=== PATIENT | female | born 1965 | race Caucasian/White ===

== ENCOUNTER 2016-09-04 22:51 | Emergency (ER) | payer OTHER ==
[~2016-09-04] VITALS: Ht 160 cm; Wt 109.0 kg
[~2016-09-04 22:51] MED LIST: BACT800T5 PO; BENA25TA8 PO; LEVO100T4 PO; LISI-587 PO; LORA5SOL3 PO; RANI150 PO; ZOCO40TA PO
[2016-09-04 22:58] VITALS: BP 149/98; PULSE 117; RESP 20; TEMP 99.4; O2SAT 95
[2016-09-04] MEDS ORDERED: SODIUM CHLOR 0.9% 1000 ML INJ 1,000 ML IV SCH (23:12)
[2016-09-04] MEDS ORDERED: ZOCO40TA PO (23:14)
[2016-09-04] MEDS ORDERED: LEVO100T5 PO (23:14)
[2016-09-04] MEDS ORDERED: ZANT150T2 PO (23:14)
[2016-09-04] MEDS ORDERED: KETOROLAC TROMETHAMINE 30 MG/ML (IVP) VIAL IVP ONE (23:15)
[2016-09-04] MEDS ORDERED: ONDANSETRON HCL 4 MG/2 ML VIAL IVP ONE (23:15)
[2016-09-04] MEDS ORDERED: SODIUM CHLORIDE 0.9% FLUSH 5 ML FLUSH IVF PRN (23:15)
[2016-09-04 23:24] VITALS: BP 98/64; PULSE 88; RESP 18; O2SAT 94
[2016-09-04 23:30] LABS: AUTOMATED NEUTROPHIL # 9.4 TH/MM3 (1.8-7.7); BASOPHIL # 0.7 TH/MM3 (0-0.2); BASOPHIL % 4.5 % (0.0-2.0); EOSINOPHIL # 0.4 TH/MM3 (0-0.4); EOSINOPHIL % 2.6 % (0.0-4.0); HEMATOCRIT 45.4 % (35.0-46.0); HEMO FLAGS DIFF FINAL; LYMPH % 24.3 % (9.0-44.0); LYMPHOCYTE # 3.6 TH/MM3 (1.0-4.8); MEAN CELL VOLUME 87.3 FL (80.0-100.0); MEAN CORPUSCULAR HEMOGLOBIN 29.9 PG (27.0-34.0); MEAN CORPUSCULAR HGB CONC 34.2 % (32.0-36.0); MONO % 4.8 % (0.0-8.0); NEUT % 63.8 % (16.0-70.0); PLATELET COUNT 537 TH/MM3 (150-450); RED CELL DISTRIBUTION WIDTH 14.3 % (11.6-17.2); WHITE BLOOD COUNT 14.8 TH/MM3 (4.0-11.0)
[2016-09-04 23:38] LABS: CHLORIDE 101 MEQ/L (98-107); POTASSIUM 3.5 MEQ/L (3.5-5.1); SODIUM (NA) 137 MEQ/L (136-145)
[2016-09-04 23:42] LABS: ANION GAP 10 MEQ/L (5-15); APTT (PATIENT) 31.5 SEC (24.3-30.1); BICARBONATE 25.6 MEQ/L (21.0-32.0); BLOOD UREA NITROGEN 27 MG/DL (7-18); INTERNATIONAL NORMALIZED RATIO 0.9 RATIO; PROTHROMBIN TIME - PATIENT 10.4 SEC (9.8-11.6)
[2016-09-04 23:45] LABS: ALT (GPT) 73 U/L (10-53); AST (GOT) 21 U/L (15-37); GLOMERULAR FILTRATION RATE 43 ML/MIN (>89)
[2016-09-04 23:47] LABS: TOTAL BILIRUBIN ADULT 0.3 MG/DL (0.2-1.0)
[2016-09-04 23:48] LABS: ALKALINE PHOSPHATASE 96 U/L (45-117)
--- NOTE | 2016-09-05 00:23 | PD ---
HPI Chief Complaint: Abdominal Pain Time Seen by Provider: 23:12 Travel History International Travel<30 days: No Contact w/Intl Traveler<30days: No Traveled to known affect area: No History of Present Illness HPI Patient is a 50-year-old female presents to emergency department today with abdominal pain. Patient states she has had cough and congestion since [place] and she has been having some phlegm production which is swallowed and going down to her stomach which she has been having some nausea from for the past few weeks. Patient states that today it turned into some abdominal pain as well. Discussing with her mother they decided to come in emergency department to be safe be checked out. Patient states that she just feels run down. Denies any fever denies any diarrhea blood in the stool or blood in the emesis. Denies any previous symptoms in the past. States her pain is really in the epigastric area and non-radiating. Cannot elicit any alleviating or exacerbating factors. PFSH Past Medical History ADHD: Yes Autoimmune Disease: No Blood Disorders: No Bipolar Disorder: Yes Anxiety: Yes Depression: Yes Cardiovascular Problems: No Diminished Hearing: No Gastrointestinal Disorders: No Genitourinary: No Hypertension: Yes Immune Disorder: No Implanted Vascular Access Dvce: No Musculoskeletal: Yes (BACK PROBLEMS) Neurologic: Yes Psychiatric: Yes Respiratory: No Migraines: Yes Thyroid Disease: Yes Influenza Vaccination: No ?: Not Past Surgical History Gynecologic Surgery: Yes (HYSTERECTOMY 2004) Hysterectomy: Yes Oral Surgery: Yes (ADENOIDECTOMY) Other Surgery: Yes (L4-L5 SPINAL FUSION) Social History Alcohol Use: Yes (social) Tobacco Use: No (quit 6 months ago) Substance Use: No Allergies-Medications (Allergen,Severity, Reaction): Coded Allergies: Cortisone (Verified Allergy, Severe, Dizziness, 09/04/16) PER PT NOT REALLY ALLERGIC PER HER DOCTOR Adhesives (Verified Allergy, Intermediate, RASH, 09/04/16) Uncoded Allergies: LATEX TAPE (Allergy, Severe, Rash, 06/18/11) Reported Meds & Prescriptions Reported Meds & Active Scripts Active Reported Levothyroxine (Levothyroxine Sodium) 100 Mcg Tab 100 Mcg PO DAILY Zantac (Ranitidine HCl) 150 Mg Tab 150 Mg PO BID Zocor (Simvastatin) 40 Mg Tab 40 Mg PO DAILY Review of Systems Except as stated in HPI: all other systems reviewed are Neg Physical Exam Narrative GENERAL: Well-developed well-nourished overweight no apparent distress. SKIN: Warm and dry. HEAD: Atraumatic. Normocephalic. EYES: Pupils equal and round. No scleral icterus. No injection or drainage. ENT: No nasal bleeding or discharge. Mucous membranes pink and moist. Oropharynx clear, TMs clear bilaterally. NECK: Trachea midline. No JVD. CARDIOVASCULAR: Regular rate and rhythm. No murmur appreciated. RESPIRATORY: No accessory muscle use. Clear to auscultation. Breath sounds equal bilaterally. GASTROINTESTINAL: Abdomen soft, non-tender, nondistended. Hepatic and splenic margins not palpable. MUSCULOSKELETAL: No obvious deformities. No clubbing. No cyanosis. No edema. NEUROLOGICAL: Awake and alert. No obvious cranial nerve deficits. Motor grossly within normal limits. Normal speech. PSYCHIATRIC: Appropriate mood and affect; insight and judgment normal. Data Data Last Documented VS Vital Signs Date Time Temp Pulse Resp B/P Pulse Ox O2 Delivery O2 Flow Rate FiO2 09/04/16 23:24 88 18 98/64 94 Room Air 09/04/16 22:58 99.4 Orders Complete Blood Count With Diff (09/04/16 23:12) Comprehensive Metabolic Panel (09/04/16 23:12) Lipase (09/04/16 23:12) Prothrombin Time / Inr (Pt) (09/04/16 23:12) Act Partial Throm Time (Ptt) (09/04/16 23:12) Urinalysis - C+S If Indicated (09/04/16 23:12) Iv Access Insert/Monitor (09/04/16 23:12) Ecg Monitoring (09/04/16 23:12) Oximetry (09/04/16 23:12) Ondansetron Inj (Zofran Inj) (09/04/16 23:15) Sodium Chlor 0.9% 1000 Ml Inj (Ns 1000 M (09/04/16 23:12) Sodium Chloride 0.9% Flush (Ns Flush) (09/04/16 23:15) Ketorolac Inj (Toradol Inj) (09/04/16 23:15) Ct Abd/Pel W Iv Contrast(Rout) (09/04/16 ) Chest, Pa & Lat (09/04/16 ) Ns (Bolus) Inj (09/05/16 00:30) Labs Laboratory Tests Test 09/04/16 23:25 White Blood Count 14.8 TH/MM3 Red Blood Count 5.20 MIL/MM3 Hemoglobin 15.5 GM/DL Hematocrit 45.4 % Mean Corpuscular Volume 87.3 FL Mean Corpuscular Hemoglobin 29.9 PG Mean Corpuscular Hemoglobin 34.2 % Concent Red Cell Distribution Width 14.3 % Platelet Count 537 TH/MM3 Mean Platelet Volume 7.4 FL Neutrophils (%) (Auto) 63.8 % Lymphocytes (%) (Auto) 24.3 % Monocytes (%) (Auto) 4.8 % Eosinophils (%) (Auto) 2.6 % Basophils (%) (Auto) 4.5 % Neutrophils # (Auto) 9.4 TH/MM3 Lymphocytes # (Auto) 3.6 TH/MM3 Monocytes # (Auto) 0.7 TH/MM3 Eosinophils # (Auto) 0.4 TH/MM3 Basophils # (Auto) 0.7 TH/MM3 CBC Comment DIFF FINAL Differential Comment Prothrombin Time 10.4 SEC Prothromb Time International 0.9 RATIO Ratio Activated Partial 31.5 SEC Thromboplast Time Sodium Level 137 MEQ/L Potassium Level 3.5 MEQ/L Chloride Level 101 MEQ/L Carbon Dioxide Level 25.6 MEQ/L Anion Gap 10 MEQ/L Blood Urea Nitrogen 27 MG/DL Creatinine 1.30 MG/DL Estimat Glomerular Filtration 43 ML/MIN Rate Random Glucose 129 MG/DL Calcium Level 9.5 MG/DL Total Bilirubin 0.3 MG/DL Aspartate Amino Transf 21 U/L (AST/SGOT) Alanine Aminotransferase 73 U/L (ALT/SGPT) Alkaline Phosphatase 96 U/L Total Protein 8.4 GM/DL Albumin 3.9 GM/DL Lipase 296 U/L [facility] Medical Decision Making Medical Screen Exam Complete: Yes Emergency Medical Condition: Yes Differential Diagnosis Pancreatitis, gastritis, gastroenteritis, colitis, pneumonia, URI, bronchitis Narrative Course Patient roomed in the emergency department, labs are consistent with some moderate dehydration. Creatinine minimally elevated 1.3, hemoglobin and hematocrit are mildly elevated as well as platelet count. Patient's white blood cell count is mildly elevated from her baseline as well. Because of the white blood cell count being mildly elevated will add CT scan as well as chest x -ray. The patient does appear well and her abdomen is benign. We'll discuss with Dr. Bearden to follow-up the imaging studies and disposition appropriately. Gerardo Roa MD Sep 05, 2016 00:23
[2016-09-05] MEDS ORDERED: SODIUM CHLOR 0.9% 1000 ML INJ 1,000 ML IV ONE (00:30)
[2016-09-05] MEDS ORDERED: IOHEXOL 350 MG/ML 10 ML VIAL (for RAD DIAG) IV ONE (00:44)
--- NOTE | 2016-09-05 01:01 | RADHPO ---
EXAM DATE/TIME: 09/05/2016 00:11 [facility] COMPARISON: No previous studies available for comparison. INDICATIONS : Mid lower quadrant abdominal pain. IV CONTRAST: 95 cc Omnipaque 300 (iohexol) IV ORAL CONTRAST: No oral contrast ingested. RADIATION DOSE: 22.39 CTDIvol (mGy) MEDICAL HISTORY : Hypertension. SURGICAL HISTORY : Hysterectomy. Fusion, lumbar. ENCOUNTER: Initial ACUITY: 1 day PAIN SCALE: 7/10 LOCATION: lower quadrant TECHNIQUE: Volumetric scanning of the abdomen and pelvis was performed. Using automated exposure control and ad justment of the mA and/or kV according to patient size, radiation dose was kept as low as reasonably achievable to obtain optimal diagnostic quality images. FINDINGS: LOWER LUNGS: The visualized lower lungs are clear. LIVER: Homogeneous density without lesion. There is no dilation of the biliary tree. No calcified gallston es. SPLEEN: Normal size without lesion. PANCREAS: Within normal limits. KIDNEYS: Normal in size and shape. There is no mass, stone or hydronephrosis. ADRENAL GLANDS: Within normal limits. VASCULAR: There is no aortic aneurysm. BOWEL/MESENTERY: The stomach, small bowel, and colon demonstrate no acute abnormality. There is no free intraperitone al air or fluid. Appendix is normal. ABDOMINAL WALL: Within normal limits. RETROPERITONEUM: There is no lymphadenopathy. BLADDER: No wall thickening or mass. REPRODUCTIVE: Within normal limits. Status post hysterectomy. INGUINAL: There is no lymphadenopathy or hernia. MUSCULOSKELETAL: Within normal limits for patient age. CONCLUSION: No acute inflammatory process. Normal appendix. Stefan Zruita MD on September 05, 2016 at 0:58 Board Certified Radiologist. This report was verified electronically.
--- NOTE | 2016-09-05 01:01 | RADHPO ---
EXAM DATE/TIME: 09/05/2016 00:16 [facility] COMPARISON: CHEST PA & LAT, May 26, 2009, 13:48. INDICATIONS : Cough. MEDICAL HISTORY : Hypertension. Hypercholesterolemia. SURGICAL HISTORY : None. ENCOUNTER: Initial ACUITY: 3 days PAIN SCORE: 0/10 LOCATION: Bilateral chest FINDINGS: PA and lateral views of the chest demonstrate the lungs to be symmetrically aerated without evidence of mass, infiltrate or effusion. The cardiomediastinal contours are unremarkable. Osseous structure s are intact. CONCLUSION: No acute disease. Stefan Zurita MD on September 05, 2016 at 0:59 Board Certified Radiologist. This report was verified electronically.
--- NOTE | 2016-09-05 01:11 | PD ---
Physical Exam Time Seen by Provider: 01:[address] Roa left this patient with me to check the results of the CT scan and make a disposition, likely discharge. Data Data Last Documented VS Vital Signs Date Time Temp Pulse Resp B/P Pulse Ox O2 Delivery O2 Flow Rate FiO2 09/05/16 01:27 82 16 116/73 97 Room Air 09/04/16 22:58 99.4 Orders Complete Blood Count With Diff (09/04/16 23:12) Comprehensive Metabolic Panel (09/04/16 23:12) Lipase (09/04/16 23:12) Prothrombin Time / Inr (Pt) (09/04/16 23:12) Act Partial Throm Time (Ptt) (09/04/16 23:12) Urinalysis - C+S If Indicated (09/04/16 23:12) Iv Access Insert/Monitor (09/04/16 23:12) Ecg Monitoring (09/04/16 23:12) Oximetry (09/04/16 23:12) Ondansetron Inj (Zofran Inj) (09/04/16 23:15) Sodium Chlor 0.9% 1000 Ml Inj (Ns 1000 M (09/04/16 23:12) Sodium Chloride 0.9% Flush (Ns Flush) (09/04/16 23:15) Ketorolac Inj (Toradol Inj) (09/04/16 23:15) Ct Abd/Pel W Iv Contrast(Rout) (09/04/16 ) Chest, Pa & Lat (09/04/16 ) Sodium Chlor 0.9% 1000 Ml Inj (Ns 1000 M (09/05/16 00:30) Iohexol 350 Inj (Omnipaque 350 Inj) (09/05/16 00:44) Labs Laboratory Tests Test 09/04/16 09/05/16 23:25 01:20 White Blood Count 14.8 TH/MM3 Red Blood Count 5.20 MIL/MM3 Hemoglobin 15.5 GM/DL Hematocrit 45.4 % Mean Corpuscular Volume 87.3 FL Mean Corpuscular Hemoglobin 29.9 PG Mean Corpuscular Hemoglobin 34.2 % Concent Red Cell Distribution Width 14.3 % Platelet Count 537 TH/MM3 Mean Platelet Volume 7.4 FL Neutrophils (%) (Auto) 63.8 % Lymphocytes (%) (Auto) 24.3 % Monocytes (%) (Auto) 4.8 % Eosinophils (%) (Auto) 2.6 % Basophils (%) (Auto) 4.5 % Neutrophils # (Auto) 9.4 TH/MM3 Lymphocytes # (Auto) 3.6 TH/MM3 Monocytes # (Auto) 0.7 TH/MM3 Eosinophils # (Auto) 0.4 TH/MM3 Basophils # (Auto) 0.7 TH/MM3 CBC Comment DIFF FINAL Differential Comment Prothrombin Time 10.4 SEC Prothromb Time International 0.9 RATIO Ratio Activated Partial 31.5 SEC Thromboplast Time Sodium Level 137 MEQ/L Potassium Level 3.5 MEQ/L Chloride Level 101 MEQ/L Carbon Dioxide Level 25.6 MEQ/L Anion Gap 10 MEQ/L Blood Urea Nitrogen 27 MG/DL Creatinine 1.30 MG/DL Estimat Glomerular Filtration 43 ML/MIN Rate Random Glucose 129 MG/DL Calcium Level 9.5 MG/DL Total Bilirubin 0.3 MG/DL Aspartate Amino Transf 21 U/L (AST/SGOT) Alanine Aminotransferase 73 U/L (ALT/SGPT) Alkaline Phosphatase 96 U/L Total Protein 8.4 GM/DL Albumin 3.9 GM/DL Lipase 296 U/L Urine Color YELLOW Urine Turbidity SLIGHT Urine pH 5.0 Urine Specific [place] GREATER THAN 1.035 Urine Protein NEG mg/dL Urine Glucose (UA) NEG mg/dL Urine Ketones NEG mg/dL Urine Occult Blood TRACE Urine Nitrite NEG Urine Bilirubin NEG Urine Leukocyte Esterase NEG Urine RBC 4-9 /hpf Urine WBC 0-2 /hpf Urine Squamous Epithelial > 8 /hpf Cells Urine Bacteria OCC /hpf Urine Mucus OCC /lpf Microscopic Urinalysis Comment CULT NOT INDICATED MDM Medical Record Reviewed: Yes Supervised Visit with YUE: Yes Interpretation(s) The CT scan of the abdomen/pelvis with IV contrast shows a normal appendix and no acute inflammatory process. The chest x-ray shows no acute disease. The complete metabolic profile shows a BUN of 27, crit and 1.3, GFR of 43, glucose 129 with ALT of 73 and total protein of 8.4 but is otherwise normal. The lipase is normal. The urine shows specific gravity greater than 1.035. There is trace occult blood with 4-9 red cells but is otherwise normal and culture is not indicated. Differential Diagnosis Colitis, acute appendicitis, pyelonephritis, cystitis, electrolyte disorder, dehydration, pancreatitisunlikely, diverticulitis, viral syndrome, abdominal pain etiology undetermined Narrative Course The patient has abdominal pain etiology undetermined. The CT scan could find no cause for the pain and, except for the slightly elevated white count, the blood work is normal. The urine shows evidence of dehydration with a specific gravity of 1.035. The blood work also shows evidence of dehydration with an elevated BUN. Dehydration could be the cause of the slightly elevated white count. Diagnosis Primary Impression: Abdominal pain of unknown etiology Additional Impression: Moderate dehydration Additional Instruction: Phenergan will be prescribed prevent nausea. You may have to take this regularly, 1 every 6 hours so that you do not get nauseated and started vomiting. It is very important that you continue to drink clear liquids. There is plenty of laboratory, clinical and historical evidence that you are dehydrated tonight. Med/Other Pt SpecificInfo: Prescription(s) given Scripts Promethazine (Phenergan)25 Mg Tab25 Mg PO Q6H PRN (Nausea/Vomiting) #30 TAB Ref 0 Prov:Irvin Bearden MD 09/05/16 Disposition: 01 DISCHARGE HOME Condition: Stable Irvin Bearden MD Sep 05, 2016 01:11
[2016-09-05 01:27] VITALS: BP 116/73; PULSE 82; RESP 16; O2SAT 97
[2016-09-05 01:27] LABS: BLOOD, URINE TRACE (NEG); GLUCOSE,URINE NEG (NEG); KETONE, URINE NEG (NEG); NITRITE,URINE NEG (NEG)
[2016-09-05 01:33] LABS: URINE COLOR YELLOW (YELLW/STRAW)
[2016-09-05 01:34] LABS: BACTERIA, URINE OCC /hpf; SQUAMOUS EPITHELIAL CELL URINE > 8 /hpf (0-5)
[2016-09-05 01:35] LABS: COMMENT (UR) CULT NOT INDICATED; CULTURE IF INDICATED CULT NOT INDICATED; MUCUS URINE OCC /lpf (OCC); WBC, URINE 0-2 /hpf (0-5)
[2016-09-05] MEDS ORDERED: PROM25TA5 PO (01:55)
[2016-09-05 02:06] VITALS: BP 119/77
[2016-09-05 02:29] VITALS: RESP 18
[2016-10-10] MEDS ORDERED: AMLO10TA2 PO (15:30)
[2016-10-10] MEDS ORDERED: CLON.1 PO (15:32)
[2016-10-10] MEDS ORDERED: AMOX500T PO (15:36)
[2016-10-11] MEDS ORDERED: LEVO125T4 PO (09:28)
[2016-10-11] MEDS ORDERED: LIPI80TA PO (09:28)
[2016-10-17] MEDS ORDERED: ATEN25TA PO (15:37)
== END 2016-09-05 02:08 | disposition home or self-care (01) ==
LOC: PHED 22:51
DX: R10.9 Unspecified abdominal pain (principal); E86.0 Dehydration; I10 Essential (primary) hypertension
CPT/HCPCS: 71020; 74177; 80053; 81001; 83690; 85025; 85610; 85730; 96361; 96374; 96375; 99284; J1885; J2405; J7030; Q9967

== ENCOUNTER → 2016-10-11 | Outpatient (CLI) | payer OTHER ==
[~2016-10-11] MED LIST changes: +AMLO10TA2 PO; +AMOX500T PO; +ATEN25TA PO; -BACT800T5 PO; -BENA25TA8 PO; +CLON.1 PO; -LEVO100T4 PO; +LEVO100T5 PO; +LEVO125T4 PO; +LIPI80TA PO; -LISI-587 PO; -LORA5SOL3 PO; +PROM25TA5 PO; -RANI150 PO; +ZANT150T2 PO
[2016-10-11 08:27] LABS: BACTERIA, URINE RARE /hpf; BLOOD, URINE NEG (NEG); COMMENT (UR) CULT NOT INDICATED; CULTURE IF INDICATED CULT NOT INDICATED; GLUCOSE,URINE NEG (NEG); KETONE, URINE NEG (NEG); MUCUS URINE FEW /lpf (OCC); NITRITE,URINE NEG (NEG); PH, URINE 6.5 (5.0-8.5); SQUAMOUS EPITHELIAL CELL URINE 7 /hpf (0-5); URINE COLOR LIGHT-YELLOW (YELLW/STRAW)
[2016-10-11 08:30] LABS: AUTOMATED NEUTROPHIL # 5.2 TH/MM3 (1.8-7.7); BASOPHIL # 0.2 TH/MM3 (0-0.2); BASOPHIL % 2.1 % (0.0-2.0); EOSINOPHIL # 0.6 TH/MM3 (0-0.4); EOSINOPHIL % 7.3 % (0.0-4.0); HEMATOCRIT 40.8 % (35.0-46.0); HEMO FLAGS DIFF FINAL; LYMPH % 25.6 % (9.0-44.0); LYMPHOCYTE # 2.2 TH/MM3 (1.0-4.8); MEAN CELL VOLUME 89.6 FL (80.0-100.0); MEAN CORPUSCULAR HEMOGLOBIN 30.2 PG (27.0-34.0); MEAN CORPUSCULAR HGB CONC 33.7 % (32.0-36.0); MONO % 3.7 % (0.0-8.0); NEUT % 61.3 % (16.0-70.0); PLATELET COUNT 341 TH/MM3 (150-450); RED BLOOD COUNT 4.55 MIL/MM3 (4.00-5.30); RED CELL DISTRIBUTION WIDTH 15.3 % (11.6-17.2); WHITE BLOOD COUNT 8.6 TH/MM3 (4.0-11.0)
[2016-10-11 09:16] LABS: ALKALINE PHOSPHATASE 53 U/L (45-117); ALT (GPT) 23 U/L (10-53); ANION GAP 8 MEQ/L (5-15); AST (GOT) 22 U/L (15-37); BICARBONATE 27.3 MEQ/L (21.0-32.0); BLOOD UREA NITROGEN 14 MG/DL (7-18); CHLORIDE 101 MEQ/L (98-107); GLOMERULAR FILTRATION RATE 59 ML/MIN (>89); GLUCOSE,FASTING 88 MG/DL (74-99); HDL CHOLESTEROL 76.2 MG/DL (40.0-60.0); LDL CHOLESTEROL 328 MG/DL (0-99); POTASSIUM 4.1 MEQ/L (3.5-5.1); SODIUM (NA) 136 MEQ/L (136-145); TOTAL BILIRUBIN ADULT 0.3 MG/DL (0.2-1.0)
[2016-10-11 16:03] LABS: HEMOGLOBIN A1b 1.4 %; HEMOGLOBIN Ao 85.4 %; HEMOGLOBIN F 0.4 %; HEMOGLOBIN LA1C 1.9 %; HEMOGLOBIN P3 3.7 %
== END ==
LOC: CLAB 07:48
PROVIDERS: ATTEND Family Medicine
DX: E86.0 Dehydration (principal); I10 Essential (primary) hypertension; E03.9 Hypothyroidism, unspecified; E66.9 Obesity, unspecified; E78.5 Hyperlipidemia, unspecified; N39.0 Urinary tract infection, site not specified; F32.9 Major depressive disorder, single episode, unspecified
CPT/HCPCS: 36415; 80053; 80061; 81001; 83036; 84443; 85025